=== PATIENT | male | born 1995 | race Two or more races ===

== ENCOUNTER 2020-05-15 05:54 | Emergency (ER) | payer MEDICAID ==
[2020-05-15] MEDS ORDERED: IBUPROFEN 800 MG TAB PO ONE (08:15)
== END 2020-05-15 08:24 | disposition home or self-care (01) ==
LOC: ER 05:54
DX: S92.252A Displaced fracture of navicular [scaphoid] of left foot, initial encounter for closed fracture (principal); W01.0XXA Fall on same level from slipping, tripping and stumbling without subsequent striking against object, initial encounter; Y93.89 Activity, other specified; Y92.89 Other specified places as the place of occurrence of the external cause; Y99.8 Other external cause status
CPT/HCPCS: 73080; 73110

== ENCOUNTER 2022-09-23 10:10 | Emergency (ER) | payer MEDICAID ==
[~2022-09-23] VITALS: Ht 182.9 cm; Wt 86.3 kg
[2022-09-23] MEDS ORDERED: KETOROLAC TROMETH 30 MG/ML 1ML VIAL IM ONE (10:30)
[2022-09-23] MEDS ORDERED: IBUP800T26 PO (12:43)
[2022-09-23 13:25] VITALS: BP 106/70
== END 2022-09-23 13:36 | disposition home or self-care (01) ==
LOC: ER 10:10
DX: S83.91XA Sprain of unspecified site of right knee, initial encounter (principal); S80.11XA Contusion of right lower leg, initial encounter; V86.56XA Driver of dirt bike or motor/cross bike injured in nontraffic accident, initial encounter; Y93.55 Activity, bike riding; Y92.89 Other specified places as the place of occurrence of the external cause; Y99.8 Other external cause status
CPT/HCPCS: 71046; 72170; 73552; 73562; 73590; 96372; 99284; J1885